=== PATIENT | female | born 1950 | race Caucasian/White ===

== ENCOUNTER 2018-07-10 16:11 | Emergency (ER) | payer MEDICARE, BC, OTHER ==
[2018-07-10] MEDS: IBUPROFEN 600 MG TAB PO (20:18)
[2018-07-10] MEDS: ACETAMINOPHEN 325 MG TAB PO (20:18)
[2018-07-10 20:39] LABS: URINE BLOOD (Dip) POC 2+ (NEGATIVE); URINE GLUCOSE (Dip) POC Negative (NEGATIVE); URINE KETONES (Dip) POC 1+ (NEGATIVE); URINE LEUKOCYTE EST (Dip) POC Trace (NEGATIVE); URINE NITRITE (Dip) POC Negative (NEGATIVE); URINE TOTAL PROTEIN POC Negative (NEGATIVE)
== END 2018-07-10 23:05 | disposition home or self-care (01) ==
LOC: FTE 16:11
DX: S32.009A Unspecified fracture of unspecified lumbar vertebra, initial encounter for closed fracture (principal); I10 Essential (primary) hypertension; V43.52XA Car driver injured in collision with other type car in traffic accident, initial encounter
CPT/HCPCS: 72128; 72131; 81003; 99284-25